=== PATIENT | female | born 1995 | race Caucasian/White ===

== ENCOUNTER 2017-07-16 00:16 | Emergency (ER) | payer OTHER ==
[~2017-07-16] VITALS: Ht 154.9 cm; Wt 52.8 kg
[~2017-07-16 00:16] MED LIST: ORSYTHIA1 EACH PO
[2017-07-16 01:15] VITALS: BP 110/76
== END 2017-07-16 01:16 | disposition home or self-care (01) ==
LOC: EME 00:16
DX: S50.02XA Contusion of left elbow, initial encounter (principal); W01.0XXA Fall on same level from slipping, tripping and stumbling without subsequent striking against object, initial encounter; Y93.K1 Activity, walking an animal
CPT/HCPCS: 73080; 99281; 99283